=== PATIENT | male | born 1970 | race African-American/Black ===

== ENCOUNTER 2019-11-13 13:10 | Outpatient (CLI) | payer BC ==
--- NOTE | 2019-11-13 14:34 | ULT ---
DOPPLER VENOUS ULTRASOUND OF THE bilateralUPPER EXTREMITY INDICATION: Bilateral upper extremity pain and edema TECHNIQUE: Grayscale, color Doppler and spectral Doppler images were obtained of the venous structure s of the bilateralupper extremity. The internal jugular vein, subclavian vein, axillary vein, cephalic vein, basilic vein, brachial vein, radial and ulnar veins were assessed. FINDINGS: There is appropriate, compression flow and phasicity seen within the bilateralinternal jugular vein. There is appropriate flow and phasicity seen within the bilateralsubclavian vein. Normal flow, compression and augmentation is seen within the bilateralaxillary vein, brachial vein, basilic vein, cephalic vein, radial and ulnar vein. Impression: No evidence of venous thrombosis within the bilateralupper extremity.
--- NOTE | 2019-11-13 14:35 | ULT ---
ULTRASOUND LOWER EXTREMITY BILATERAL VENOUS DOPPLER: HISTORY: Edema and pain. COMPARISON: None. FINDINGS: Real-time, draper scale, color Doppler, and spectral analysis bilateral lower extremity venous system w as performed. Common femoral, femoral, proximal portion, greater saphenous, and deep femoral veins a s well as the popliteal and posterior tibial veins were interrogated. Normal flow, augmentation, and compression. IMPRESSION: No deep vein thrombosis. POS: [facility]
== END 2019-11-13 13:11 | disposition home or self-care (01) ==
LOC: SCSULT 13:10
PROVIDERS: ATTEND Internal Medicine Hematology & Oncology
DX: I82.401 Acute embolism and thrombosis of unspecified deep veins of right lower extremity (principal); R60.0 Localized edema; M79.602 Pain in left arm; M79.601 Pain in right arm; M79.605 Pain in left leg; M79.604 Pain in right leg
CPT/HCPCS: 93970